=== PATIENT | male | born 1960 | race Caucasian/White ===

== ENCOUNTER 2021-07-01 11:56 | Emergency (ER) | payer BC ==
[2021-07-01 12:10] VITALS: RESP 16; TEMP 98.4
[2021-07-01] MEDS ORDERED: SODIUM CHLORIDE 0.9% 1,000 ML IV STA (12:41)
[2021-07-01] MEDS ORDERED: MECLIZINE 25 MG TAB PO STA (12:42)
[2021-07-01] MEDS ORDERED: ONDANSETRON 4 MG/2 ML VIAL IVP STA (12:43)
--- NOTE | 2021-07-01 12:52 | ED ---
General Adult HPI - General Chief complaint: Dizziness Stated complaint: Weakness,Vomiting Time Seen by Provider: 07/01/21 12:00 Source: patient, RN notes reviewed, old records reviewed Mode of arrival: EMS - History of Present Illness Initial comments: This is a 61-year-old male who presents emergency department stating that last 2 weeks she's had a little bit of an upper respiratory infection. Patient states he's had no fever or difficulty breathing. Patient states she had some congestion and as of yesterday he started having dizziness anytime he moved his head it was worse when he Sits still was better. Patient states he had no headache but he was mildly nauseated. Patient states he was uncomfortable enough for he didn't feel as though he can drive himself in today. Patient denies any sore throat or ear pain. Patient denies any new hearing loss or ringing in ears. Patient denies chest pain palpitations difficulty breathing shortness of breath. Patient denies any facial tenderness. - Related Data Home Medications Medication Instructions Recorded Confirmed Aspirin EC [Ecotrin] 325 mg PO DAILY 08/04/16 12/28/16 Naproxen Sodium [Aleve] 440 mg PO DAILY PRN 08/04/16 12/28/16 Jublia 1 applicate TOPICAL DAILY 12/21/16 12/28/16 Previous Rx's Medication Instructions Recorded metFORMIN HCL [Glucophage] 500 mg PO BID #60 tab 08/07/16 HYDROcodone/APAP 5-325MG [[place] 1 each PO Q4HR PRN #20 tab 08/14/16 5-325] Insulin Glargine [Lantus Vial] 25 unit SQ HS #1 vial 08/14/16 Multivitamins, Thera [Multivitamin 1 each PO DAILY@1200 #30 tab 08/14/16 (formulary)] Triamcinolone 0.1% Cream [Kenalog 1 applicatio TOPICAL BID #45 g 11/02/16 0.1% Cream] Dexamethasone [Decadron] 6 mg PO DAILY #7 tablet 07/01/21 Allergies Allergy/AdvReac Type Severity Reaction Status Date / Time Penicillins Allergy Unknown Verified 12/28/16 09:04 Childhood sulfamethoxazole Allergy Diarrhea Verified 12/28/16 09:04 [From Bactrim] trimethoprim [From Bactrim] Allergy Diarrhea Verified 12/28/16 09:04 Review of Systems ROS Statement: Those systems with pertinent positive or pertinent negative responses have been documented in the HPI. ROS Other: All systems not noted in ROS Statement are negative. 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 Incision and drainage of the abscess of the extensor tendon sheath of the right foot. 08/18/2016: Incision and debridement of right foot. 08/20/2016 incision and debridement of the right foot. 08/27/2016 revision of the transmetatarsal amputation of the right foot. Past Anesthesia/Blood Transfusion Reactions: No Reported Reaction Additional Past Anesthesia/Blood Transfusion Reaction / Comment(s): PT STATED NEVER HAD ANY GENERAL AA- NEVER HAD ANY SX Past Psychological History: No Psychological Hx Reported Smoking Status: Never smoker Past Alcohol Use History: Occasional Past Drug Use History: None Reported - Past Family History Father Family Medical History: Diabetes Mellitus, Hypertension, Myocardial Infarction ([place]) Additional Family Medical History / Comment(s): [employer] Mother Family Medical History: Cancer, Diabetes Mellitus, Hypertension Additional Family Medical History / Comment(s): IRREG RYTHYM General Exam - General Exam Comments Initial Comments: GENERAL: Patient is well-developed and well-nourished. Patient is nontoxic and well- hydrated and is in mild distress. ENT: Neck is soft and supple. No significant lymphadenopathy is noted. Oropharynx is clear. Moist mucous membranes. Neck has full range of motion without elici ting any pain. EYES: The sclera were anicteric and conjunctiva were pink and moist. Extraocular m ovements were intact and pupils were equal round and reactive to light. Eyelids were unremarkable. PULMONARY: Unlabored respirations. Good breath sounds bilaterally. No audible rales rhonchi or wheezing was noted. CARDIOVASCULAR: There is a regular rate and rhythm without any murmurs gallops or rubs. ABDOMEN: Soft and nontender with normal bowel sounds. SKIN: Skin is clear with no lesions or rashes and otherwise unremarkable. NEUROLOGIC: Patient is alert and oriented x3. Cranial nerves II through XII are grossly intact. Motor and sensory are also intact. Normal speech, volume and content. Symmetrical smile. Patient knows testing bilaterally was normal. Movement of the head makes symptoms worse. MUSCULOSKELETAL: Normal extremities with adequate strength and full range of motion. No lower extremity swelling or edema. No calf tenderness. LYMPHATICS: No significant lymphadenopathy is noted PSYCHIATRIC: Normal psychiatric evaluation. Course Vital Signs 07/01/21 07/01/21 07/01/21 12:01 12:33 14:25 Temperature 98.4 F Pulse Rate 72 70 Pulse Rate [ 80 Right Sitting] Pulse Rate [ 74 Right Standing] Pulse Rate [ 67 Right Supine] Respiratory 16 16 16 Rate Blood Pressure 167/84 184/84 Blood Pressure 165/78 [Left Arm Sitting] Blood Pressure 147/79 [Left Arm Standing] Blood Pressure 182/85 [Left Arm Supine] O2 Sat by Pulse 96 98 95 Oximetry Medical Decision Making - Medical Decision Making EKG shows a normal sinus rhythm at 67 bpm MO interval is on a 54 QRS is 90 QT interval 424 QTC is 448. Patient's EKG shows no ST segment elevation or depression. Patient's orthostatics were positive though he did not feel dizzy he didn't drop 35.6 from laying to standing. Heart rate stayed relatively the same. Chest x-ray shows some patchy infiltrates consistent difficulty. Patient did test positive for COVID here he has 12 days out from the symptoms that he does not qualify for monoclonal antibodies. Patient states he really isn't feeling short of breath he is more just lightheaded and he agrees that he has not been eating or drinking since he has been feeling bad. Patient was given Decadron in the hospital and be sent home with some Decadron with specific instructions to r eturn if there is any difficulty breathing. CT of the head shows no acute abnormality. - Lab Data Result diagrams: 07/01/21 13:07/01/21 13: Lab Results 07/01/21 07/01/21 07/01/21 Range/Units 13: 13: 13: WBC 6.7 (3.8-10.6) k/uL RBC 5.69 (4.30-5.90) m/uL Hgb 17.3 (13.0-17.5) gm/dL Hct 49.9 (39.0-53.0) % MCV 87.9 (80.0-100.0) fL MCH 30.4 (25.0-35.0) pg MCHC 34.6 (31.0-37.0) g/dL RDW 12.4 (11.5-15.5) % Plt Count 185 (150-450) k/uL MPV 8.0 Neutrophils % 76 % Lymphocytes % 15 % Monocytes % 6 % Eosinophils % 1 % Basophils % 0 % Neutrophils # 5.1 (1.3-7.7) k/uL Lymphocytes # 1.0 (1.0-4.8) k/uL Monocytes # 0.4 (0-1.0) k/uL Eosinophils # 0.0 (0-0.7) k/uL Basophils # 0.0 (0-0.2) k/uL PT 10.8 (9.0-12.0) sec INR 1.0 (<1.2) APTT 19.1 L (22.0-30.0) sec Sodium 136 L (137-145) mmol/L Potassium 3.8 (3.5-5.1) mmol/L Chloride 102 (98-107) mmol/L Carbon Dioxide 24 (22-30) mmol/L Anion Gap 10 mmol/L BUN 15 (9-20) mg/dL Creatinine 0.59 L (0.66-1.25) mg/dL Est GFR (CKD-EPI)AfAm >90 (>60 ml/min/1.73 sqM) Est GFR (CKD-EPI)NonAf >90 (>60 ml/min/1.73 sqM) Glucose 214 H (74-99) mg/dL Calcium 8.1 L (8.4-10.2) mg/dL Magnesium 1.9 (1.6-2.3) mg/dL Total Bilirubin 1.0 (0.2-1.3) mg/dL AST 20 (17-59) U/L ALT 17 (4-49) U/L Alkaline Phosphatase 77 (38-126) U/L Troponin I (0.000-0.034) ng/mL Total Protein 5.8 L (6.3-8.2) g/dL Albumin 2.9 L (3.5-5.0) g/dL Coronavirus (PCR) (Not Detectd) 07/01/21 07/01/21 Range/Units 13:01 13:34 WBC (3.8-10.6) k/uL RBC (4.30-5.90) m/uL Hgb (13.0-17.5) gm/dL Hct (39.0-53.0) % MCV (80.0-100.0) fL MCH (25.0-35.0) pg MCHC (31.0-37.0) g/dL RDW (11.5-15.5) % Plt Count (150-450) k/uL MPV Neutrophils % % Lymphocytes % % Monocytes % % Eosinophils % % Basophils % % Neutrophils # (1.3-7.7) k/uL Lymphocytes # (1.0-4.8) k/uL Monocytes # (0-1.0) k/uL Eosinophils # (0-0.7) k/uL Basophils # (0-0.2) k/uL PT (9.0-12.0) sec INR (<1.2) APTT (22.0-30.0) sec Sodium (137-145) mmol/L Potassium (3.5-5.1) mmol/L Chloride (98-107) mmol/L Carbon Dioxide (22-30) mmol/L Anion Gap mmol/L BUN (9-20) mg/dL Creatinine (0.66-1.25) mg/dL Est GFR (CKD-EPI)AfAm (>60 ml/min/1.73 sqM) Est GFR (CKD-EPI)NonAf (>60 ml/min/1.73 sqM) Glucose (74-99) mg/dL Calcium (8.4-10.2) mg/dL Magnesium (1.6-2.3) mg/dL Total Bilirubin (0.2-1.3) mg/dL AST (17-59) U/L ALT (4-49) U/L Alkaline Phosphatase (38-126) U/L Troponin I <0.012 (0.000-0.034) ng/mL Total Protein (6.3-8.2) g/dL Albumin (3.5-5.0) g/dL Coronavirus (PCR) Detected A (Not Detectd) Disposition Clinical Impression: Pneumonia due to COVID-19 virus Disposition: HOME SELF-CARE Condition: Good Instructions (If sedation given, give patient instructions): Coronavirus Disease 2019 (COVID-19) Prescriptions: Dexamethasone [Decadron] 6 mg PO DAILY #7 tablet Is patient prescribed a controlled substance at d/c from ED?: No Referrals: Eleanor Ortiz III, MD [Primary Care Provider] - 1-2 days Time of Disposition: 14:35
[2021-07-01 13:08] LABS: Basophils % (A) 0 %; Eosinophils % (A) 1 %; HCT 49.9 % (39.0-53.0); HGB 17.3 gm/dL (13.0-17.5); Lymphocytes % (A) 15 %; MCH 30.4 pg (25.0-35.0); MCHC 34.6 g/dL (31.0-37.0); MCV 87.9 fL (80.0-100.0); Monocytes # (A) 0.4 k/uL (0-1.0); Monocytes % (A) 6 %; Neutrophils # (A) 5.1 k/uL (1.3-7.7); Neutrophils % (A) 76 %; Platelet Count 185 k/uL (150-450); RBC 5.69 m/uL (4.30-5.90); RDW 12.4 % (11.5-15.5); WBC 6.7 k/uL (3.8-10.6)
--- NOTE | 2021-07-01 13:22 | XR ---
EXAMINATION TYPE: XR chest 2V DATE OF EXAM: 07/01/2021 COMPARISON: Chest x-ray 08/13/2016 HISTORY: Chest pain, dizziness and nausea TECHNIQUE: Frontal and lateral views of the chest are obtained. FINDINGS: Patchy bilateral airspace disease is suspected. There is no evident pneumothorax or pleura l effusion. Heart size may be accentuated by technique. Bones are stable. IMPRESSION: Correlate for pneumonia, consider covid Infection
--- NOTE | 2021-07-01 13:22 | CT ---
EXAMINATION TYPE: CT brain wo con DATE OF EXAM: 07/01/2021 HISTORY: Dizziness. H/o CVA and TIA. CT DLP: 1062.4 mGycm. Automated Exposure Control for Dose Reduction was Utilized. TECHNIQUE: CT scan of the head is performed without contrast. COMPARISON: None. FINDINGS: There is no acute intracranial hemorrhage or midline shift identified. There is mild to m oderate diffuse ventricular and sulcal prominence consistent with diffuse age-related cerebral atroph y. Guzman-white matter differentiation is maintained. The globes are intact and the visualized sinuses are clear. Nasal septum deviated to right of midline. There is calcified 1.5 cm scalp lesion superi madelin axial image 52 presumed benign but of uncertain etiology. IMPRESSION: No acute intracranial hemorrhage or midline shift. There is mild to moderate diffuse ag e-related cerebral atrophy noted.
[2021-07-01 13:23] LABS: ALT 17 U/L (4-49); AST 20 U/L (17-59); African American GFR (CKD) >90 (>60 ml/min/1.73 sqM); Albumin 2.9 g/dL (3.5-5.0); Alkaline Phosphatase 77 U/L (38-126); Anion Gap 10 mmol/L; Blood Urea Nitrogen 15 mg/dL (9-20); Calcium 8.1 mg/dL (8.4-10.2); Carbon Dioxide 24 mmol/L (22-30); Chloride 102 mmol/L (98-107); Glucose 214 mg/dL (74-99); Magnesium 1.9 mg/dL (1.6-2.3); Non-African American GFR(CKD) >90 (>60 ml/min/1.73 sqM); Potassium 3.8 mmol/L (3.5-5.1); Sodium 136 mmol/L (137-145); Total Protein 5.8 g/dL (6.3-8.2)
[2021-07-01 13:31] LABS: Prothrombin Time 10.8 sec (9.0-12.0)
[2021-07-01 13:35] LABS: Partial Thromboplastin Time 19.1 sec (22.0-30.0)
[2021-07-01 14:27] VITALS: BP 184/84; PULSE 70
[2021-07-01] MEDS ORDERED: dexAMETHasone 2 MG TAB PO STA (14:28)
== END 2021-07-01 14:48 | disposition home or self-care (01) ==
LOC: EC 11:56
DX: U07.1 COVID-19 (principal); J12.82 Pneumonia due to coronavirus disease 2019; E11.9 Type 2 diabetes mellitus without complications; Z79.4 Long term (current) use of insulin; Z79.52 Long term (current) use of systemic steroids; Z79.82 Long term (current) use of aspirin; Z79.899 Other long term (current) drug therapy; Z86.73 Personal history of transient ischemic attack (TIA), and cerebral infarction without residual deficits; Z88.0 Allergy status to penicillin; Z88.1 Allergy status to other antibiotic agents; Z88.2 Allergy status to sulfonamides; Z83.3 Family history of diabetes mellitus; Z82.49 Family history of ischemic heart disease and other diseases of the circulatory system
CPT/HCPCS: 36415; 93005; 80053; 83735; 84484; 85025; 85610; 85730; 87635; 71046; 70450; 99285; 96374; 96361; J2405; J8540

== ENCOUNTER → 2021-11-27 | Outpatient (CLI) | payer BC ==
--- NOTE | 2021-11-27 19:24 | US ---
Exam: LOWER EXTREMITY VENOUS INSUFFICIENCY DATE: 11/27/2021 CLINICAL HISTORY: 61-year-old male L97.512 NON PRESSURE CHRONIC ULCER. Non healing wound bottom of ri ght foot x 3 weeks, wound care center patient FINDINGS: SIDE PERFORMED: Bilateral 1) Color flow is present and patency is documented in the following vessels. No DVT or SVT is noted . Common Femoral Vein Deep Femoral Vein Femoral Vein Popliteal Vein Proximal Calf Veins Greater Saph Vein Upper Small Saph Vein 2) There is venous reflux noted at the following venous levels: none 3) Incompetent perforators are noted at these levels: none IMPRESSION: No evidence for DVT within the bilateral lower extremities imaged from the groin through the knees. N o venous reflux seen.
== END | disposition home or self-care (01) ==
LOC: RADUSWWP 13:38
PROVIDERS: ATTEND Thoracic Surgery (Cardiothoracic Vascular Surgery)
DX: E11.621 Type 2 diabetes mellitus with foot ulcer (principal); L97.512 Non-pressure chronic ulcer of other part of right foot with fat layer exposed; Z89.421 Acquired absence of other right toe(s)
CPT/HCPCS: 93923; 93970

== ENCOUNTER 2022-02-18 16:04 | Emergency (ER) | payer OTHER, BC ==
[2022-02-18 19:05] VITALS: BP 189/97; PULSE 66; RESP 20; TEMP 97.9
[2022-02-18] MEDS ORDERED: LIDOCAINE 1% INJ 10MG/ML (5 ML VIAL-PF) SQ ONE (19:09)
[2022-02-18] MEDS ORDERED: TOPICAL SKIN ADHESIVE 1 EACH AMP TOPICAL ONE (19:13)
[2022-02-18] MEDS ORDERED: LIDOCAINE/EPINEPHR/TETRACAINE 5 ML BOTTLE TOPICAL ONE (19:13)
--- NOTE | 2022-02-18 19:24 | ED ---
Wound/Laceration HPI - General Chief Complaint: Wound/Laceration Stated Complaint: Thumb laceration Time Seen by Provider: 02/18/22 19:08 Source: patient, RN notes reviewed Mode of arrival: ambulatory Limitations: no limitations - Related Data Home Medications Medication Instructions Recorded Confirmed Aspirin EC [Ecotrin] 325 mg PO DAILY 08/04/16 12/28/16 Naproxen Sodium [Aleve] 440 mg PO DAILY PRN 08/04/16 12/28/16 Jublia 1 applicate TOPICAL DAILY 12/21/16 12/28/16 Previous Rx's Medication Instructions Recorded metFORMIN HCL [Glucophage] 500 mg PO BID #60 tab 08/07/16 HYDROcodone/APAP 5-325MG [[place] 1 each PO Q4HR PRN #20 tab 08/14/16 5-325] Insulin Glargine [Lantus Vial] 25 unit SQ HS #1 vial 08/14/16 Multivitamins, Thera [Multivitamin 1 each PO DAILY@1200 #30 tab 08/14/16 (formulary)] Triamcinolone 0.1% Cream [Kenalog 1 applicatio TOPICAL BID #45 g 11/02/16 0.1% Cream] dexAMETHasone [Decadron] 6 mg PO DAILY #7 tablet 07/01/21 Allergies Allergy/AdvReac Type Severity Reaction Status Date / Time Penicillins Allergy Unknown Verified 02/18/22 19:05 Childhood sulfamethoxazole Allergy Diarrhea Verified 02/18/22 19:05 [From Bactrim] trimethoprim [From Bactrim] Allergy Diarrhea Verified 02/18/22 19:05 Review of Systems ROS Statement: Those systems with pertinent positive or pertinent negative responses have been documented in the HPI. ROS Other: All systems not noted in ROS Statement are negative. 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 Incision and drainage of the abscess of the extensor tendon sheath of the right foot. 08/18/2016: Incision and debridement of right foot. 08/20/2016 incision and debridement of the right foot. 08/27/2016 revision of the transmetatarsal amputation of the right foot. Past Anesthesia/Blood Transfusion Reactions: No Reported Reaction Additional Past Anesthesia/Blood Transfusion Reaction / Comment(s): PT STATED NEVER HAD ANY GENERAL AA- NEVER HAD ANY SX Past Psychological History: No Psychological Hx Reported Smoking Status: Never smoker Past Alcohol Use History: Occasional Past Drug Use History: None Reported - Past Family History Father Family Medical History: Diabetes Mellitus, Hypertension, Myocardial Infarction ([place]) Additional Family Medical History / Comment(s): [employer] Mother Family Medical History: Cancer, Diabetes Mellitus, Hypertension Additional Family Medical History / Comment(s): IRREG RYTHYM General Exam Limitations: no limitations General appearance: alert, in no apparent distress Head exam: Present: atraumatic, normocephalic, normal inspection Eye exam: Present: normal appearance, PERRL, EOMI. Absent: scleral icterus, conjunctival injection, periorbital swelling ENT exam: Present: normal exam, mucous membranes moist Neck exam: Present: normal inspection. Absent: tenderness, meningismus, lymphadenopathy Respiratory exam: Present: normal lung sounds bilaterally. Absent: respiratory distress, wheezes, rales, rhonchi, stridor Cardiovascular Exam: Present: regular rate, normal rhythm, normal heart sounds. Absent: systolic murmur, diastolic murmur, rubs, gallop, clicks GI/Abdominal exam: Present: soft. Absent: tenderness Extremities exam: Present: full ROM, normal capillary refill. Absent: normal inspection (Patient has a 4 cm laceration dorsum left thumb which is superficial. Sensory the subcutaneous tissue. No tendon involvement.), tenderness, pedal edema, joint swelling, calf tenderness Left Forearm Wrist exam: Present: normal inspection, full ROM. Absent: tenderness Hand Wrist exam: Present: full ROM, laceration (As above). Absent: tenderness, swelling, abrasion, ecchymosis, deformity, crepitus, dislocation, erythema, amputation, nail avulsion, subungual hematoma Neuro motor exam: Present: wrist extension intact, thumb opposition intact, thumb IP flexion intact, thumb adduction intact, fingers 2-5 abduction intact Neurosensory exam: Present: radial nerve intact, ulnar nerve intact, median nerve intact Vascular: Present: normal capillary refill. Absent: vascular compromise, Pallo, pulse deficit radial art, pulse deficit ulnar art Back exam: Present: normal inspection Neurological exam: Present: alert, oriented X3, CN II-XII intact. Absent: motor sensory deficit Psychiatric exam: Present: normal affect, normal mood. Absent: anxious, flat affect, manic, homicidal ideation, suicidal ideation Skin exam: Present: warm, dry, normal color. Absent: intact (Laceration dorsum left thumb), rash, cyanosis, diaphoretic, erythema, urticaria, vesicles, petechiae, pallor, mottled, abrasion Course Vital Signs 02/18/22 19:00 Temperature 97.9 F Pulse Rate 66 Respiratory 20 Rate Blood Pressure 189/97 O2 Sat by Pulse 97 Oximetry Procedures - Laceration Laceration #1 Consent Obtained: verbal consent Site: upper extremity (Left thumb) Size (cm): 4 Description: linear Depth: simple, single layer Pre-repair: wound explored, irrigated extensively, deep structures intact Type of Sutures: other (Tissue adhesive) Technique: other (Tissue adhesive) Patient Tolerated Procedure: well, no complications Additional Comments: Topical let solution used for local anesthetic Disposition Clinical Impression: Laceration of left thumb Disposition: HOME SELF-CARE Condition: Good Instructions (If sedation given, give patient instructions): Skin Adhesive Care (ED) Additional Instructions: Follow-up with your regular physician if needed. Return to the ER immediately if any symptoms worsen, new symptoms arise, or any other problems develop. Is patient prescribed a controlled substance at d/c from ED?: No Referrals: Eleanor Ortiz III, MD [Primary Care Provider] - 1-2 days Time of Disposition: 19:40
== END 2022-02-18 19:55 | disposition home or self-care (01) ==
LOC: EC 16:04
DX: S61.012A Laceration without foreign body of left thumb without damage to nail, initial encounter (principal); E11.9 Type 2 diabetes mellitus without complications; Z79.82 Long term (current) use of aspirin; Z79.4 Long term (current) use of insulin; Z79.84 Long term (current) use of oral hypoglycemic drugs; Z88.0 Allergy status to penicillin; Z88.1 Allergy status to other antibiotic agents; Z88.2 Allergy status to sulfonamides; W26.8XXA Contact with other sharp object(s), not elsewhere classified, initial encounter
CPT/HCPCS: 12002; 99282; J2001

== ENCOUNTER 2022-07-16 12:39 | Emergency (ER) | payer BC ==
[2022-07-16 14:34] VITALS: BP 142/82; PULSE 80; RESP 18; TEMP 98.1
[2022-07-16] MEDS ORDERED: HYDROcodone/APAP 5-325MG 1 EACH TAB PO STA (14:41)
[2022-07-16 15:04] LABS: Appearance,Urine Clear (Clear); Bacteria,Urine Rare /hpf; Bilirubin,Urine Negative (Negative); Blood,Urine Negative (Negative); Color,Urine Yellow; Glucose,Urine (UA) 4+ (Negative); Leukocyte Esterase,Urine Negative (Negative); Mucus,Urine Many /hpf; Nitrite,Urine Negative (Negative); PH, Urine 5.5 (5.0-8.0); Protein,Urine 1+ (Negative); RBC,Urine 1 /hpf (0-5); Squamous Epithelial Cell,Urine 1 /hpf (0-4); WBC,Urine 3 /hpf (0-5)
--- NOTE | 2022-07-16 15:23 | ED ---
Back Pain HPI - General Chief Complaint: Back Pain/Injury Stated Complaint: R side pain, back pain, dizziness Time Seen by Provider: 07/16/22 14:36 Source: patient, RN notes reviewed Mode of arrival: ambulatory Limitations: no limitations - History of Present Illness Initial Comments: This is a 62-year-old male who presents to the emergency department for back pain. States that the symptoms started approximately 2 weeks ago. Denies any known injury. He was initially going to the chiropractor which he found helpful. He was then evaluated at [facility] and given a prescription for a muscle relaxant and an anti-inflammatory. This improved symptoms for 2 days and they then returned. States that he has been doubled over in pain. Describes the pain as being in the right side of the lower back wrapping around into the right lower quadrant. Denies any history of kidney stones, burning with urination, or blood in the urine. He has had associated nausea today. Denies any loss of bowel or bladder control or saddle anesthesia. Denies any fevers, chills, sore throat, cough, dyspnea, chest pain, palpitations, vomiting, diarrhea, or headaches. MD Complaint: back pain Onset/Timin -: week(s) Similar Symptoms Previously: Yes Radiation: abdomen - Related Data Home Medications Medication Instructions Recorded Confirmed Aspirin EC [Ecotrin] 325 mg PO DAILY 08/04/16 12/28/16 Naproxen Sodium [Aleve] 440 mg PO DAILY PRN 08/04/16 12/28/16 Jublia 1 applicate TOPICAL DAILY 12/21/16 12/28/16 Previous Rx's Medication Instructions Recorded metFORMIN HCL [Glucophage] 500 mg PO BID #60 tab 08/07/16 HYDROcodone/APAP 5-325MG [Conway 1 each PO Q4HR PRN #20 tab 08/14/16 5-325] Insulin Glargine [Lantus Vial] 25 unit SQ HS #1 vial 08/14/16 Multivitamins, Thera [Multivitamin 1 each PO DAILY@1200 #30 tab 08/14/16 (formulary)] Triamcinolone 0.1% Cream [Kenalog 1 applicatio TOPICAL BID #45 g 11/02/16 0.1% Cream] dexAMETHasone [Decadron] 6 mg PO DAILY #7 tablet 07/01/21 Azithromycin [Zithromax Tri-Andrew (3 500 mg PO DAILY 3 Days #3 tab 02/18/22 tabs)] Ondansetron Odt [Zofran Odt] 4 mg PO Q8HR PRN #10 tab 07/16/22 predniSONE 50 mg PO DAILY 5 Days #5 tablet 07/16/22 traMADol HCl [Ultram] 50 mg PO Q6HR PRN 3 Days #12 tab 07/16/22 Allergies Allergy/AdvReac Type Severity Reaction Status Date / Time Penicillins Allergy Unknown Verified 07/16/22 14:34 Childhood sulfamethoxazole Allergy Diarrhea Verified 07/16/22 14:34 [From Bactrim] trimethoprim [From Bactrim] Allergy Diarrhea Verified 07/16/22 14:34 Review of Systems ROS Statement: Those systems with pertinent positive or pertinent negative responses have been documented in the HPI. ROS Other: All systems not noted in ROS Statement are negative. 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 Incision and drainage of the abscess of the extensor tendon sheath of the right foot. 08/18/2016: Incision and debridement of right foot. 08/20/2016 incision and debridement of the right foot. revision of the transmetatarsal amputation of the right foot. Past Anesthesia/Blood Transfusion Reactions: No Reported Reaction Additional Past Anesthesia/Blood Transfusion Reaction / Comment(s): PT STATED NEVER HAD ANY GENERAL AA- NEVER HAD ANY SX Past Psychological History: No Psychological Hx Reported Smoking Status: Never smoker Past Alcohol Use History: Occasional Past Drug Use History: None Reported - Past Family History Father Family Medical History: Diabetes Mellitus, Hypertension, Myocardial Infarction ([place]) Additional Family Medical History / Comment(s): [employer] Mother Family Medical History: Cancer, Diabetes Mellitus, Hypertension Additional Family Medical History / Comment(s): IRREG RYTHYM General Exam Limitations: no limitations General appearance: alert, in no apparent distress Head exam: Present: atraumatic, normocephalic, normal inspection Respiratory exam: Present: normal lung sounds bilaterally. Absent: respiratory distress, wheezes, rales, rhonchi, stridor Cardiovascular Exam: Present: regular rate, normal rhythm, normal heart sounds. Absent: systolic murmur, diastolic murmur, rubs, gallop, clicks GI/Abdominal exam: Present: soft, tenderness (Right lower quadrant), normal bowel sounds. Absent: distended Back exam: Present: CVA tenderness (R). Absent: CVA tenderness (L) Neurological exam: Present: alert, oriented X3, CN II-XII intact Psychiatric exam: Present: normal affect, normal mood Skin exam: Present: warm, dry, intact, normal color. Absent: rash Course Vital Signs 07/16/22 14:28 Temperature 98.1 F Pulse Rate 80 Respiratory 18 Rate Blood Pressure 142/82 O2 Sat by Pulse 97 Oximetry Medical Decision Making - Medical Decision Making This is a 62-year-old male who presents to the emergency department for lower back and abdominal pain. Urinalysis is negative for any signs of blood. Ketones and glucose related to the patient's diabetes. Patient declines any bl ood work at this time. Description of symptoms is suspicious for a kidney stone, computed tomography scan of the abdomen and pelvis and computed tomography scan of the lumbar spine were obtained. My interpretation of the computed tomography scan of the abdomen and pelvis reveals no signs of hydronephrosis or ureteral calculus. My interpretation of the computed tomography scan of the lumbar spine reveals multilevel degenerative changes. The radiologist makes note of broad based disc bulges with mild effacement of the anterior thecal sac at the levels of L3-L4 and L4-S1. Findings discussed with the patient. He was given a dose of Conway with no relief. Rx for 5 day course of prednisone provided. Will provide the patient with a 3 day course of tramadol because the anti-inflammatory and muscle relaxant combination have not been effective. Advised he take the prednisone with Tylenol and use the tramadol very sparingly when his pain is the most severe. Also advised the tramadol can be very sedating, especially if taken in combination with the muscle relaxant, which he should avoid doing. Rx for Zofran provided for any additional nausea. Recommended [id number] lidocaine cream and either ice or heat for additional relief. Information for orthopedic follow-up provided, he is instructed to contact them for a follow-up appointment. Return precautions reviewed in depth, the patient is instructed to return to the emergency department with any new, worsening, or concerning symptoms, especially loss of bowel or bladder control or saddle anesthesia. Patient verbalized understanding. This case was discussed in detail with the attending ED physician. Presentation, findings, and treatment plan discussed in detail as well. - Lab Data Lab Results 07/16/22 Range/Units 14:47 Urine Color Yellow Urine Appearance Clear (Clear) Urine pH 5.5 (5.0-8.0) Ur Specific Rowland 1.050 H (1.001-1.035) Urine Protein 1+ H (Negative) Urine Glucose (UA) 4+ H (Negative) Urine Ketones 3+ H (Negative) Urine Blood Negative (Negative) Urine Nitrite Negative (Negative) Urine Bilirubin Negative (Negative) Urine Urobilinogen 2.0 (<2.0) mg/dL Ur Leukocyte Esterase Negative (Negative) Urine RBC 1 (0-5) /hpf Urine WBC 3 (0-5) /hpf Ur Squamous Epith Cells 1 (0-4) /hpf Urine Bacteria Rare H (None) /hpf Urine Mucus Many H (None) /hpf - Radiology Data Radiology results: report reviewed, image reviewed Disposition Clinical Impression: Lumbar herniated disc Disposition: HOME SELF-CARE Instructions (If sedation given, give patient instructions): Lumbar Disc Herniation (ED) Additional Instructions: Return to the emergency department with any new, worsening, or concerning symptoms, especially if you develop any loss of bowel or bladder control or numbness/tingling in the pelvis. Take the prednisone daily for 5 days. You can also take Tylenol and use over the counter lidocaine cream or patches. Take the Tramadol sparingly when your pain is the most severe. Be aware that this may be sedating, and you should take it at night until you know how it affects you. Taking this with the muscle relaxant will also exacerbate the sedating effects. Try to avoid bending over or lifting heavy objects. When you do bend over, bend with the knees. You can apply ice and heat for additional relief. Contact orthopedics as listed below for a follow up appointment. Prescriptions: predniSONE 50 mg PO DAILY 5 Days #5 tablet traMADol HCl [Ultram] 50 mg PO Q6HR PRN 3 Days #12 tab PRN Reason: Pain Ondansetron Odt [Zofran Odt] 4 mg PO Q8HR PRN #10 tab PRN Reason: Nausea And Vomiting Is patient prescribed a controlled substance at d/c from ED?: Yes When asked, does pt state using other controlled substances?: No If prescribed controlled substance>3 days was MAPS reviewed?: Prescribed <3 Days Referrals: Eleanor Ortiz III, MD [Primary Care Provider] - 1-2 days Julio Burton DO [Doctor of Osteopathic Medicine] - 1-2 days
[2022-07-16 15:41] LABS: Ketones,Urine 3+ (Negative)
--- NOTE | 2022-07-16 15:55 | CT ---
EXAMINATION TYPE: CT abdomen pelvis wo con CT DLP: combined DLP 3116.4 mGycm, Automated exposure control for dose reduction was used. DATE OF EXAM: 07/16/2022 3:46 PM COMPARISON: CT lumbar spine the same day. CLINICAL INDICATION:Male, 62 years old with history of right flank pain, RLQ pain; c/o back pain, no injury TECHNIQUE: Standard CT of the abdomen and pelvis without IV or oral contrast. Lack of IV or oral co ntrast limits evaluation of solid and hollow organ viscera. Coronal and sagittal reformats were perfo rmed. FINDINGS: LOWER CHEST: The visualized lungs are clear. Coronary artery calcifications. ABDOMEN LIVER: Unremarkable noncontrast appearance. GALLBLADDER AND BILE DUCTS: Calcified gallstones identified. No surrounding inflammatory changes. No biliary ductal dilatation. PANCREAS: Unremarkable noncontrast appearance. SPLEEN: Unremarkable noncontrast appearance. ADRENAL GLANDS: Unremarkable noncontrast appearance. KIDNEYS AND URETERS: No evidence of hydronephrosis or renal calculus. Nonspecific bilateral perinephr ic fat stranding. No ureteral calculi. PELVIS BLADDER: Under distended, limiting evaluation. REPRODUCTIVE: Unremarkable. ABDOMEN & PELVIS STOMACH AND BOWEL: Stomach and duodenum are unremarkable. Distal colonic diverticulosis without evide nce for acute diverticulitis. The appendix is within normal limits. No focal wall thickening or surro unding fat stranding. No evidence of bowel obstruction. No pneumatosis. PERITONEUM: No evidence of pneumoperitoneum. Trace free fluid in the pelvis. VASCULATURE: No evidence of aortic aneurysm. MUSCULOSKELETAL: No acute osseous abnormalities. Please refer to dedicated CT lumbar spine the same d ay for findings. LYMPH NODES: No gross evidence for lymphadenopathy. SOFT TISSUE/ABDOMINAL WALL: Small fat filled umbilical hernia. IMPRESSION: 1. Trace free fluid in the pelvis otherwise no acute process within limitations of noncontrast exami nation. 2. Colonic diverticulosis without evidence for acute diverticulitis. 3. Cholelithiasis.
--- NOTE | 2022-07-16 16:01 | CT ---
EXAMINATION TYPE: CT lumbar spine wo con CT DLP: combined DLP 3116.4 mGycm, Automated exposure control for dose reduction was used. DATE OF EXAM: 07/16/2022 3:46 PM COMPARISON: CT abdomen pelvis of same day.. CLINICAL INDICATION:Male, 62 years old with history of back pain, no injury; PHH, c/o back pain, no i njury TECHNIQUE: Multiple axial images were obtained from the midportion of T11 through the sacroiliac kyler nts. Soft tissue and bone windows in coronal and sagittal planes were obtained and reviewed. FINDINGS: Alignment: There are 4 lumbar type vertebral bodies. No spondylolisthesis. Levocurvature of the lumba r spine with apex at L3-L4. Bone: No evidence of fracture is identified. Multilevel disc space narrowing with endplate sclerosis and anterior osteophytosis. Discs: T12 is labeled as the last vertebral body with ribs. T12-L1: No spinal canal or neural foraminal stenosis is identified. L1-L2: No spinal canal or neural foraminal stenosis is identified. L2-L3: No spinal canal or neural foraminal stenosis is identified. L3-L4: Broad-based disc bulge with mild effacement of the anterior thecal sac. The neural foramen are patent. L4-S1: Broad-based disc bulge with mild effacement of the anterior thecal sac. Facet hypertrophy. Mi ld bilateral neural foraminal stenosis. Other: Please refer to CT abdomen and pelvis of the same day for findings. IMPRESSION: 1. No evidence of fracture of the lumbar spine. 2. Mild multilevel degenerative disc disease.
== END 2022-07-16 17:02 | disposition home or self-care (01) ==
LOC: EC 12:39
DX: M51.26 Other intervertebral disc displacement, lumbar region (principal); E11.9 Type 2 diabetes mellitus without complications; Z79.84 Long term (current) use of oral hypoglycemic drugs; Z79.899 Other long term (current) drug therapy; Z88.0 Allergy status to penicillin; Z88.2 Allergy status to sulfonamides
CPT/HCPCS: 72131; 74176; 81001; 99284

== ENCOUNTER → 2023-10-18 | Outpatient (CLI) | payer MEDICARE, BC ==
[2023-10-18 08:20] LABS: African American GFR (CKD) >90 (>60 ml/min/1.73 sqM); Blood Urea Nitrogen 25 mg/dL (9-20); Non-African American GFR(CKD) >90 (>60 ml/min/1.73 sqM)
--- NOTE | 2023-10-18 09:11 | CT ---
EXAMINATION TYPE: CT angio chest CT DLP: DLP 1682.7 mGycm, Automated exposure control for dose reduction was used. 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 3-D reformats were created of the aorta along with maximum intensity projections [facility] FINDINGS: Pulmonary Artery: There is no evidence for a filling defect within the pulmonary vasculature to sugge st acute pulmonary embolism. The pulmonary artery is of normal size. Lungs/Pleura: No evidence of focal consolidation, pleural effusion or pneumothorax. Airway: Large airways are patent. Heart: Heart is within normal limits for size. Atherosclerosis of the coronary arteries. Vasculature: No evidence for intramural hematoma on noncontrast imaging. No evidence of intimal flap to suggest dissection. No aneurysm identified. Scattered atherosclerotic disease. No filling defect w ithin the pulmonary arterial vasculature. Mediastinum: No gross evidence of adenopathy. Musculoskeletal: No acute osseous abnormalities Soft Tissues: Unremarkable. Lower neck: No significant findings. Upper Abdomen: No significant findings. IMPRESSION: No evidence for dissection, aneurysm or occlusion. No acute process.
== END | disposition home or self-care (01) ==
LOC: RADCTMAIN 07:23
PROVIDERS: ATTEND Internal Medicine Interventional Cardiology
DX: E78.1 Pure hyperglyceridemia (principal)
CPT/HCPCS: 82565; 84520; 71275; 36415; Q9967

== ENCOUNTER → 2024-11-16 | Outpatient (CLI) | payer MEDICARE, BC ==
--- NOTE | 2024-11-16 16:13 | XR ---
EXAMINATION TYPE: XR foot complete RT DATE OF EXAM: 11/16/2024 4:05 PM COMPARISON: 08/11/2016 CLINICAL INDICATION: Male, 64 years old with history of L97.512 NON PRESSURE CHONIC ULCER OF OTHER PA RT OF RT FOOT W; PHH, pain TECHNIQUE: XR foot complete RT examined in the AP, oblique, and lateral projections. FINDINGS: Amputation changes to the first through fifth metatarsals no evidence for osseous erosion. Calcaneal plantar spurring. Discussed the arterial vasculature. IMPRESSION: 1. Postsurgical changes without evidence for osteomyelitis at this time. 2. Calcaneal plantar spurring. [facility], , 11/16/2024 4:10 PM
[2024-11-17 02:24] LABS: Basophils # (A) 0.04 X 10*3/uL (0.00-0.10); Basophils % (A) 0.4 %; Eosinophils # (A) 0.37 X 10*3/uL (0.04-0.35); Eosinophils % (A) 3.6 %; HGB 16.7 g/dL (13.0-17.0); Lymphocytes # (A) 2.65 X 10*3/uL (0.90-5.00); Lymphocytes % (A) 26.1 %; MCH 29.7 pg (27.0-32.0); MCHC 33.4 g/dL (32.0-37.0); MCV 88.8 FL (80.0-97.0); Mean Platelet Volume 10.4 FL (9.5-12.2); Monocytes # (A) 0.78 X 10*3/uL (0.20-1.00); Monocytes % (A) 7.7 %; NRBC Per 100 WBC 0 X 10*3/uL (0.00-0.01); Neutrophils # (A) 6.28 X 10*3/uL (1.80-7.70); Neutrophils % (A) 61.8 %; Platelet Count 284 X 10*3/uL (140-440); RBC 5.63 X 10*6/uL (4.40-5.60); RDW 13.3 % (11.5-14.5); WBC 10.16 X 10*3/uL (4.50-10.00)
[2024-11-17 03:03] LABS: ALT 18 U/L (10-49); AST 14 U/L (14-35); Albumin 3.6 g/dL (3.8-4.9); Alkaline Phosphatase 98 U/L (41-126); BUN/Creat Ratio 21.12 Ratio (12.00-20.00); Blood Urea Nitrogen 16.9 mg/dL (9.0-27.0); Calcium 9.1 mg/dL (8.7-10.3); Carbon Dioxide 28.6 mmol/L (21.6-31.8); Chloride 102 mmol/L (96-109); Globulin 2.4 g/dL (1.6-3.3); Glucose 206 mg/dL (70-110); Potassium 4.3 mmol/L (3.5-5.5); Sodium 139 mmol/L (135-145); Total Bilirubin 0.2 mg/dL (0.3-1.2)
== END | disposition home or self-care (01) ==
LOC: LABWHC1 15:29
PROVIDERS: ATTEND Thoracic Surgery (Cardiothoracic Vascular Surgery)
DX: E11.621 Type 2 diabetes mellitus with foot ulcer (principal); L97.512 Non-pressure chronic ulcer of other part of right foot with fat layer exposed
CPT/HCPCS: 36415; 80053; 83036; 85025